=== PATIENT | male | born 1975 | race Two or more races ===

== ENCOUNTER 2022-02-01 02:48 | Emergency (ER) | payer SELFPAY ==
[~2022-02-01] VITALS: Ht 175.3 cm; Wt 78.0 kg
--- NOTE | 2022-02-01 03:10 | NUR ---
[id number] FROM THE [facility] FOR HEADACHE AND L SIDE FACIAL NUMBNESS. PT A0X4, AMBULATORY. NO FACIAL DROOPING. GOOD RELAY ADJUSTER ON BOTH ARM. NO DRIFTING.
[2022-02-01] MEDS ORDERED: SUMATRIPTAN SUCCINATE 6 MG/0.5 ML VIAL SQ ONE ×2 (03:30→03:36)
[2022-02-01] MEDS ORDERED: KETOROLAC TROMETHAMINE INJ 30 MG/ML VIAL IV ONE (03:30)
[2022-02-01] MEDS ORDERED: METOCLOPRAMIDE HCL 10 MG/2 ML VIAL IV ONE (03:30)
[2022-02-01] MEDS ORDERED: IV NS 0.9% 1,000 ML BAG IV ONE (03:30)
[2022-02-01] MEDS ORDERED: KETOROLAC TROMETHAMINE INJ 30 MG/ML VIAL ONE (03:36)
[2022-02-01] MEDS ORDERED: METOCLOPRAMIDE HCL 10 MG/2 ML VIAL ONE (03:36)
--- NOTE | 2022-02-01 03:36 | NUR ---
IV ESTABLISHED RF 20G. BLOOD DRAWN AND SENT TO LAB
--- NOTE | 2022-02-01 03:39 | NUR ---
POC BG [id number]
[2022-02-01 03:45] LABS: BASOPHILS % (AUTO) 0.5 % (0.0-2.0); EOSINOPHILS % (AUTO) 3.8 % (0.0-6.0); HEMATOCRIT 42 % (39-51); HEMOGLOBIN 14.3 g/dL (13.5-17.5); LYMPHOCYTES # (AUTO) 1.9 K/uL (0.8-4.8); LYMPHOCYTES % (AUTO) 30.8 % (20.0-44.0); MEAN CORPUSCULAR HGB CONC 35 g/dl (31.0-36.0); MEAN CORPUSCULAR VOLUME 86 fL (80-96); MONOCYTES # (AUTO) 0.5 K/uL (0.1-1.30); MONOCYTES % (AUTO) 8.4 % (2.0-12.0); NEUTROPHILS # (AUTO) 3.4 K/uL (1.8-8.9); NEUTROPHILS % (AUTO) 56.5 % (43.0-81.0); PLATELET COUNT (AUTO) 203 K/uL (150-450); RED BLOOD CELL COUNT(AUTO) 4.82 MIL/uL (4.5-6.0)
--- NOTE | 2022-02-01 04:11 | NUR ---
PT STATED FEELING MUCH BETTER, DENIES PAIN NOW. WANTS TO GO HOME NOW. MADE AWARE
[2022-02-01] MEDS ORDERED: SUMA100T16 PO (04:13)
[2022-02-01] MEDS ORDERED: KETO10TA2 PO (04:13)
--- NOTE | 2022-02-01 04:19 | NUR ---
PT DISCHARGE TO HOME, BROTHER PICKED UP THE PT. RFA IV LINE REMOVED, CATHETER INTACT.
[2022-02-01 04:21] VITALS: BP 135/72
[2022-02-01 04:27] LABS: CALCIUM, SERUM 8.8 mg/dL (8.5-10.1); CREATININE 0.8 mg/dL (0.6-1.3); POTASSIUM 3.6 mmol/L (3.5-5.1)
== END 2022-02-01 04:19 | disposition home or self-care (01) ==
LOC: ER 02:59
DX: R51.9 Headache, unspecified (principal); I10 Essential (primary) hypertension; E11.9 Type 2 diabetes mellitus without complications; Z79.899 Other long term (current) drug therapy
CPT/HCPCS: 99284; 96374; 96375; 85025; 80048; 36415; 82962; 96372; J3030; J2765; J1885; J7030